=== PATIENT | female | born 1955 | race Caucasian/White ===

== ENCOUNTER → 2016-12-30 | Outpatient (CLI) | payer OTHER | LOC: FIMAGING 12:17 | PROVIDERS: ATTEND Obstetrics & Gynecology | DX: Z12.31 Encounter for screening mammogram for malignant neoplasm of breast (principal) | CPT/HCPCS: G0202 ==

== ENCOUNTER 2017-07-28 06:15 | Inpatient (IN) | payer OTHER ==
[~2017-07-28 06:15] MED LIST: ROPIVACAINE 0.2% 80 MG, EPINEPHrine 0.2 MG, KETOROLAC TROMETHAMINE 30 MG in SYRINGE 0 ML IU ONE; TRANEXAMIC ACID 3,000 MG in NS 50 ML IRR ONE
[2017-07-28] MEDS ORDERED: TRANEXAMIC ACID 3,000 MG/50 ML BAG IRR ONE (06:31)
[2017-07-28] MEDS ORDERED: ceFAZolin 2 GM/SWFI 2 GM/20 ML SYR IVP ONE (06:39)
[2017-07-28] MEDS ORDERED: DEXAMETHASONE 4 MG/ML VIAL IVP ONE (06:39)
[2017-07-28] MEDS ORDERED: ACETAMINOPHEN 325 MG TAB PO ONE (06:39)
[2017-07-28] MEDS ORDERED: FAMOTIDINE 20 MG TAB PO ONE (06:39)
[2017-07-28] MEDS ORDERED: LIDOCAINE 1% 2 ML INJ ID PRN (06:41)
[2017-07-28] MEDS ORDERED: LR 1,000 ML IV ONE (06:41)
--- NOTE | 2017-07-28 07:13 | PDHPUP ---
History & Physical Update H&P update statement: This history and physical update is based on an assessment of the patient which was completed after admission or registration (within 24 hours), but prior to the surgery/procedure. H&P update: H&P reviewed & patient examined, no change in patient's condition since H&P completed
[2017-07-28] MEDS ORDERED: MIDAZOLAM 2 MG/2 ML VIAL IVP ONE (07:38)
--- NOTE | 2017-07-28 07:38 | PDANEPAE ---
ANE History of Present Illness 61 yo for teto ANE Past Medical History - Cardiovascular History Hx Hypertension: No Hx Arrhythmias: Yes Hx Coronary Artery / Peripheral Vascular Disease: No Hx CHF / Valvular Disease: No Hx Palpitations: No Cardiovascular History Comment: Mild mitral regurg-stable. LBBB X 8 YEARS WORKED UP NORMAL RESULTS & ASYMPTOMATIC. HEART CATH DECEMBER 2006 - Pulmonary History Hx COPD: No Hx Asthma/Reactive Airway Disease: No Hx Recent Upper Respiratory Infection: No Hx Oxygen in Use at Home: No Hx Sleep Apnea: No Sleep Apnea Screening Result - Last Documented: Negative Pulmonary History Comment: NEG - Neurologic History Hx Cerebrovascular Accident: No Hx Seizures: No Hx Dementia: No - Endocrine History Hx Diabetes: No Endocrine History Comment: Hgb A1C =6.0-down from 6.1 October - Renal History Hx Renal Disorders: No - Liver History Hx Hepatic Disorders: No - Neurological & Psychiatric Hx Hx Neurological and Psychiatric Disorders: Yes Neurological / Psychiatric History Comment: DDD, spinal stenosis Tx w/remote hx of CATHY. Cymbalta for low back pain. Denies depression/anxiety. - Cancer History Hx Cancer: No - Congenital Disorder History Hx Congenital Disorders: No - GI History Hx Gastrointestinal Disorders: No - Other Health History Other Health History: NONE - Chronic Pain History Chronic Pain: Yes (R hip) - Surgical History Prior Surgeries: L total hip 9-15. LAPAROSCOPIES X2. ARTHROSCOPIC KNEES JOE. R THHMB. L CARPAL TUNNEL ANE Review of Systems Review of Systems: - Exercise capacity METS (RN): 4 METS ANE Patient History - Allergies Allergies/Adverse Reactions: bacitracin Allergy (Verified 07/13/17 11:09) Swelling/neck,face,throat Penicillins Allergy (Verified 07/13/17 11:09) Hives - Home Medications Home medications: home medication list seen and reviewed Home Medications: Herbals/Supplements -Info Only 1 ea PO DAILY 04/04/15 [Last Taken 04/01/15] [place]-3 Fatty Acids [Fish Oil 1000 mg (*)] 1,000 mg PO DAILY 04/04/15 [Last Taken 04/01/15] Acetaminophen [Tylenol 325mg (*)] 325 mg PO Q8H PRN 07/08/17 [Last Taken Unknown ] Ascorbic Acid [Vitamin C 500 mg (*)] 500 mg PO DAILY 07/08/17 [Last Taken Unknown] Cholecalciferol Vit D3 [Vitamin D3 (*)] 1,000 units PO DAILY 07/08/17 [Last Taken Unknown] DULoxetine [Cymbalta 30 MG (*)] 30 mg PO DAILY 07/08/17 [Last Taken Unknown] Ibuprofen [Motrin (*)] 600 mg PO Q8HRS PRN 07/08/17 [Last Taken Unknown] - NPO status NPO Status: no food or drink >8 hours NPO Since - Liquids (Date): 07/28/17 NPO Since - Liquids (Time): 05:00 NPO Since - Solids (Date): 07/27/17 NPO Since - Solids (Time): 21:00 - Smoking Hx Smoking Status: Never smoked - Family Anes Hx Family Hx Anesthesia Complications: NEG ANE Labs/Vital Signs - Vital Signs Blood Pressure: 132/65 Heart Rate: 76 Respiratory Rate: 16 O2 Sat (%): 92 Height: 5 ft 5.5 in Weight: 68.946 kg ANE Physical Exam - Airway Neck exam: FROM Mallampati Score: Class 2 Mouth exam: normal dental/mouth exam - Pulmonary Pulmonary: no respiratory distress - Cardiovascular Cardiovascular: regular rate and rhythym - ASA Status ASA Status: II ANE Anesthesia Plan Anesthesia Plan: spinal
[2017-07-28] MEDS ORDERED: PROPOFOL/EMULSION 500 MG/50 ML BOTTLE IV ONE (08:08)
[2017-07-28] MEDS ORDERED: ONDANSETRON 4 MG/2 ML VIAL IVP PRN ×2 (09:10→09:32)
[2017-07-28] MEDS ORDERED: fentaNYL 100 MCG/2 ML INJ IVP PRN (09:10)
[2017-07-28] MEDS ORDERED: HYDROmorphONE/DILAUDID 1 MG/ML INJ IVP PRN (09:10)
[2017-07-28] MEDS ORDERED: NALOXONE HCL 0.4 MG/ML INJ IVP PRN (09:10)
[2017-07-28] MEDS ORDERED: POLYETHYLENE GLYCOL 3350 17 GM PKT PO PRN (09:32)
[2017-07-28] MEDS ORDERED: BISACODYL 10 MG SUPP PR PRN (09:32)
[2017-07-28] MEDS ORDERED: LACTULOSE 20 GM/30 ML UDCUP PO PRN (09:32)
[2017-07-28] MEDS ORDERED: ONDANSETRON DISINTEGRATING 4 MG TAB PO PRN (09:32)
[2017-07-28] MEDS ORDERED: DIPHENOXYLATE/ATROPINE LOMOTIL 1 TAB PO PRN (09:32)
[2017-07-28] MEDS ORDERED: PROMETHAZINE HCL 25 MG SUPPR PR PRN (09:32)
[2017-07-28] MEDS ORDERED: PROMETHAZINE HCL 25 MG/ML INJ IVP PRN (09:32)
[2017-07-28] MEDS ORDERED: MAGNESIUM HYDROXIDE 30 ML UDCUP PO PRN (09:32)
[2017-07-28] MEDS ORDERED: METOCLOPRAMIDE 10 MG/2 ML VIAL IVP PRN (09:32)
[2017-07-28] MEDS ORDERED: TEMAZEPAM 15 MG CAP PO PRN (09:32)
[2017-07-28] MEDS ORDERED: CYCLOBENZAPRINE 10 MG TAB PO PRN (09:32)
[2017-07-28] MEDS ORDERED: diphenhydrAMINE 25 MG CAP PO PRN (09:32)
--- NOTE | 2017-07-28 09:32 | POSTOPPROG ---
Post Op Note Date of Operation: 07/28/17 Surgeon: Priscilla Gardner Line Haul Driver: rc gardner Anesthesiologist: dr. alexandre Anesthesia: Spinal Pre-op Diagnosis: right hip OA Post-op Diagnosis: same Indication: right hip pain due to OA that failed conservative measures Procedure: R MISSY ant approach Findings: severe hip OA Inf/Abcess present in the surg proc area at time of surgery?: No EBL: 100-500
--- NOTE | 2017-07-28 09:52 | POSTANESTH ---
Post Anesthetic Evaluation Cardiovascular Status: Normal, Stable Respiratory Status: Normal, Stable Level of Consciousness/Mental Status: Can Participate in Eval Pain Control: Adequate, Prn Tx Ordered Nausea/Vomiting Control: Adequate, Prn Tx Ordered Complications Possibly Related to Anesthesia: None Noted
[2017-07-28] MEDS ORDERED: LR 1,000 ML IV SCH (10:00)
[2017-07-28] MEDS ORDERED: ACETAMINOPHEN 325 MG TAB ONE (12:06)
[2017-07-28] MEDS: ACETAMINOPHEN 325 MG TAB PO SCH ×4 (12:16→23:28)
[2017-07-28] MEDS: ceFAZolin 2 GM/DEXTROSE 100 ML IV SCH ×2 (15:31→23:28)
[2017-07-28] MEDS: oxyCODONE IR 5 MG TAB PO PRN ×3 (15:32→23:30)
[2017-07-28] MEDS: SENNOSIDES/DOCUSATE SODIUM TAB PO SCH (20:46)
[2017-07-28] MEDS: ASPIRIN 81 MG CHEWABLE TAB PO SCH (20:47)
[2017-07-28] MEDS: FAMOTIDINE 20 MG TAB PO SCH (20:47)
[2017-07-29 03:39] VITALS: RESP 16
[2017-07-29] MEDS: ACETAMINOPHEN 325 MG TAB PO SCH ×2 (05:12→11:27)
[2017-07-29 08:01] VITALS: BP 102/66; PULSE 67; TEMP 98.8; O2SAT 94
[2017-07-29] MEDS: oxyCODONE IR 5 MG TAB PO PRN (08:13)
[2017-07-29] MEDS: ASPIRIN 81 MG CHEWABLE TAB PO SCH (08:14)
[2017-07-29] MEDS: SENNOSIDES/DOCUSATE SODIUM TAB PO SCH (08:15)
[2017-07-29] MEDS: FAMOTIDINE 20 MG TAB PO SCH (08:15)
--- NOTE | 2017-07-29 08:32 | GOP ---
[f rep st] OPERATIVE REPORT DATE OF OPERATION: 07/28/2017 SURGEON: Jet Simpson MD PORTFOLIO ADMINISTRATOR: JANE Turner ANESTHESIA: Spinal. PREOPERATIVE DIAGNOSIS: Right hip osteoarthritis. POSTOPERATIVE DIAGNOSIS: Right hip osteoarthritis. PROCEDURE PERFORMED: Right total hip arthroplasty with x-ray. FINDINGS: ESTIMATED BLOOD LOSS: 200 cc. INDICATIONS: The patient has progressively worsening arthritis of the hip which has failed medical management. The patient understands the treatment options including continued non-operative care and has selected surgical intervention. The patient has decided to undergo total hip arthroplasty via the direct anterior approach, understanding the risks of the procedure including , but not limited to, neurovascular injury, infection, persistent pain, component wear and loosening, deep venous thrombosis, pulmonary embolism, limb length inequality, hip instability (including dislocation), and intra-operative fractures. DESCRIPTION OF PROCEDURE: After proper identification of the patient including verification and marking the surgical site, the patient was brought to the operating room and placed in the supine position. All bony prominences were well padded. Anesthesia was induced without complication and intravenous prophylactic antibiotics were administered prior to skin incision. The operative leg was placed in the Trumpf Arch table extension and the well leg in a Yellofin leg hernandez. The patient was prepped and draped in the usual sterile fashion. The C-arm was draped for intra-operative fluoroscopy to check acetabular position, femoral component position including leg length and femoral offset. Attention was then drawn to surgical exposure of the hip. An incision was made with a #10 Bard Cordell blade starting 3 cm lateral and 3 cm distal to the anterior superior iliac spine measuring 8-10 cm and coursing distally toward the greater trochanter. The skin and subcutaneous tissues were divided sharply down to the fascia tammie. The fascia tammie was incised in line with the skin incision exposing the underlying tensor fascia tammie muscle. The muscle was bluntly elevated from the fascia and the first extracapsular Cobra retractor was placed laterally at the junction of the superior femoral neck and greater trochanter. The lateral femoral circumflex vessels were identified, cauterized , and divided with the Aquamantys bipolar cautery. The deep investing fascia of the TFL was divided to allow proper mobilization of the muscle preventing damage during the retraction. The reflected head of the rectus femoris muscle was elevated off the anterior hip capsule and a medial Cobra retractor was placed just proximal to the lesser trochanter. The anterior capsulotomy was made sharply from the superolateral acetabulum to the saddle junction of the superior femoral neck and greater trochanter, then coursing inferomedial towards the lesser trochanter. The retractors were then placed in the intracapsular position for femoral neck osteotomy. Corresponding to pre-operative templating, the osteotomy was made with the oscillating saw carefully protecting the greater trochanter and soft tissues. The femoral head was removed from the acetabulum with a corkscrew and confirmed to be severely arthritic with exposed bone, deformity and osteophytes. Similar findings were confirmed in the acetabulum. The Arch table extension was then placed in 40 degrees external rotation. Attention was then drawn to the acetabular preparation. After placement of the anterior and posterior Cobra retractors outside the labrum and intracapsular, the circumferential labrum was removed sharply. The foveal contents were then removed and hemostasis obtained with cautery. The first reamer selected was sized using the removed femoral head. Reaming began with medialization and then commenced in 2 mm increments at 45 degrees of abduction and 15 degrees of anteversion using fluoroscopic navigation. Reaming ceased 1 mm less than the definitive acetabular component and corresponded to the pre-operative templating. The final acetabular component was inserted using fluoroscopy to achieve proper orientation yielding excellent purchase and stability in the acetabulum. The final acetabular liner was then placed and its seating confirmed. Attention was then turned to the femur. The Arch table extension was placed in extension and adduction, delivering the osteotomized femoral neck into the wound. A 2-pronged femoral elevator was placed at the calcar and another at the tip of the greater trochanter. The posterolateral capsule was released with cautery allowing mobilization of the femur lateral and anterior for preparation. The external rotators were visualized and preserved. A curette and rongeur were used to open the starting point for broaching. Serial broaching started with the #0 broach and ended with the broach that exhibited excellent fit in the proximal femur. A change in pitch during mallet strikes was accompanied by the inability to advance the broach any further. The trial reduction was performed and fluoroscopic navigation was utilized to check limb length. Adjustments were made to equalize limb length accordingly. After the final trials were accepted they were removed and the wound was copiously lavaged. The femoral component was seated to the same depth as the final broach and the femoral head was impacted onto the clean trunnion. The hip was then reduced for the final time and once more fluoroscopy was used to check that limb length equality was achieved. The wound was irrigated and closed in layers, the fascia tammie with 2-0 Quill, the subcutaneous tissue with 2-0 Quill, and the skin with Dermabond. Sterile dressings were applied. Final sharps and sponge counts were accurate. The patient was then transferred to a hospital bed and brought to the recovery room in stable condition. IMPLANTS: Accolade II, size 4 at 127. Acetabular component a 50 mm Tritanium. The liner is a Trident X3, 32 mm. The head is a Biolox delta, 32 mm, -4. /[id number]/MODL MTDD
--- NOTE | 2017-07-29 08:46 | SOAPPROG ---
SOAP Progress Note Assessment/Plan: Assessment: Patient is doing well POD 1 s/p R MISSY Pain management: pain is well controlled on oral pain meds. VTE ppx: recommend aspirin 81mg BID for 4 weeks, cont JENNI and SCDs Anemia: level is expected initially postop. Asymptomatic. Continue to monitor D/c planning: d/c to home today pending release from PT Plan: 07/29/17 08:46 Subjective: Halina is doing well, denies SOB, chest pain and n/v Objective: Vital Signs Temp Pulse Resp BP Pulse Ox 37.1 C 67 16 102/66 94 07/29/17 07:58 07/29/17 07:58 07/29/17 07:58 07/29/17 07:58 07/29/17 07:58 Laboratory Results 07/29/17 05:42 07/28/17 07/29/17 07/30/17 05:59 05:59 05:59 Intake Total 3371 Output Total 2250 Balance 1121 RLE: incision dressing is clean and dry, NVI, +pf/df ICD10 Worksheet Patient Problems: Problems Problem Status Onset Primary localized osteoarthritis of right hip Acute Osteoarthritis of knee Acute
[2017-07-29] MEDS ORDERED: DULoxetine 30 MG CAP PO SCH (09:00)
--- NOTE | 2017-07-29 10:13 | GDS ---
[f rep st] DISCHARGE SUMMARY ADMISSION DIAGNOSIS: Right hip osteoarthritis. DISCHARGE DIAGNOSIS: Right hip osteoarthritis. PROCEDURE: Right total hip arthroplasty. VTE PROPHYLAXIS: Aspirin 81 mg twice daily for four weeks. BRIEF DESCRIPTION OF HOSPITAL STAY: Patient was admitted for an elective joint arthroplasty. The pa marty tolerated the procedure well and has passed physical therapy. The patient was given appropriat e antibiotic prophylaxis and venous thromboembolism prophylaxis. The patient's pain was well control led on oral pain medication, patient was holding down food, and had urinated. Decision was made to d ischarge the patient. The patient was given post-operative prescriptions pre-operatively. PLAN: Please follow up as scheduled 08/19 at 2:45 p.m. /[id number]/MODL
--- NOTE | 2017-07-29 14:25 | ASDISCHSUM ---
Discharge Information Plan Status:Home with No Needs Medically Cleared to Leave: Discharge Date:07/29/2017 12:41 PM CM D/C Disposition:Home, Routine, Self-Care ADT D/C Disposition:Home, Routine, Self-Care Projected Discharge Date:07/29/2017 12:41 PM Transportation at D/C: Discharge Delay Reason: Follow-Up Date:07/29/2017 12:41 PM Discharge Slot: Final Diagnosis: Placement Information Patient Contact Information Contact Name:NEELAM Relationship: Address:[address] Work Phone: [facility]:[place] Alternate Phone: [facility]/Zip Code:[place] [address] Email: Financial Information Financial Class:HMO and PPO Plans Primary Plan Desc:LUZ PPO [employer] Primary Plan Number:[id number] Secondary Plan Desc: Secondary Plan Number: Assessment Information CM Chart Snatcher Assessment CJR Did you go to joint Answers: Yes class? CM Note CM Note Notes: Halina is planning to discharge home after one day with the support of her family. She has set up physical therapy in an outpatient setting, but is looking to cancel that per Dr. Chun recommendation. Halina has stairs leading into her home and to her bedroom, but I informed her that physical therapy in the hospital will be able to teach her how to be mobile on stairs. Halina is currently using a cane to get around, but has a walker for post-surgery. Date Signed: 07/22/2017 03:24 PM Electronically Signed By:Danelle Steward Intervention Information
== END 2017-07-29 12:41 | disposition home or self-care (01) | DRG 470 ==
LOC: F3N 06:15
PROVIDERS: ADMIT Orthopaedic Surgery; ATTEND Orthopaedic Surgery
PROC: 0SR904A Replacement of Right Hip Joint with Ceramic on Polyethylene Synthetic Substitute, Uncemented, Open Approach (ICD-10-PCS; principal; 2017-07-28 08:15)
DX: M17.11 Unilateral primary osteoarthritis, right knee (principal); I44.7 Left bundle-branch block, unspecified; Z96.642 Presence of left artificial hip joint
CPT/HCPCS: 97116-GP; 97161-GP; 97165-GO; 97530-GP; 97535-GO; J0171; J0690; J1100; J1885; J2250; J2704; J2795

== ENCOUNTER → 2018-01-04 | Outpatient (CLI) | payer OTHER | LOC: CIMAGING 14:22 | PROVIDERS: ATTEND Internal Medicine | DX: Z12.31 Encounter for screening mammogram for malignant neoplasm of breast (principal) ==

== ENCOUNTER 2018-01-14 08:22 | Inpatient (IN) | payer OTHER ==
[~2018-01-14 08:22] MED LIST changes: +TRANEXAMIC ACID 3,000 MG in NS (SYRINGE) 50 ML IRR ONE; -TRANEXAMIC ACID 3,000 MG in NS 50 ML IRR ONE; +TRANEXAMIC ACID 3,000 MG/50 ML BAG IRR ONE
[2018-01-14] MEDS ORDERED: DEXAMETHASONE 4 MG/ML VIAL IVP ONE (08:48)
[2018-01-14] MEDS ORDERED: FAMOTIDINE 20 MG TAB PO ONE (08:48)
[2018-01-14] MEDS ORDERED: ceFAZolin 2 GM/DEXTROSE 100 ML IV ONE (08:48)
[2018-01-14] MEDS ORDERED: ACETAMINOPHEN 325 MG TAB PO ONE (08:48)
[2018-01-14] MEDS ORDERED: LR 1,000 ML IV ONE (08:49)
[2018-01-14] MEDS ORDERED: MIDAZOLAM 2 MG/2 ML VIAL IVP ONE (09:05)
--- NOTE | 2018-01-14 09:05 | PDANEPAE ---
ANE History of Present Illness her for MISSY ANE Past Medical History - Cardiovascular History Hx Hypertension: No Hx Arrhythmias: No Hx Chest Pain: No Hx Coronary Artery / Peripheral Vascular Disease: No Hx CHF / Valvular Disease: No Hx Palpitations: No Cardiovascular History Comment: Mild mitral regurg-stable. LBBB X 8 YEARS WORKED UP NORMAL RESULTS & ASYMPTOMATIC. HEART CATH DECEMBER 2006 - Pulmonary History Hx COPD: No Hx Asthma/Reactive Airway Disease: No Hx Recent Upper Respiratory Infection: No Hx Oxygen in Use at Home: No Hx Sleep Apnea: No Sleep Apnea Screening Result - Last Documented: Negative Pulmonary History Comment: NEG - Neurologic History Hx Cerebrovascular Accident: No Hx Seizures: No Hx Dementia: No - Endocrine History Hx Diabetes: No Endocrine History Comment: PRE DIABETIC BORDERLINE ELEVATION IN HGA1C - Renal History Hx Renal Disorders: No - Liver History Hx Hepatic Disorders: No - Neurological & Psychiatric Hx Hx Neurological and Psychiatric Disorders: Yes Neurological / Psychiatric History Comment: DDD, spinal stenosis Tx w/remote hx of CATHY. Cymbalta for low back pain. Denies depression/anxiety. - Cancer History Hx Cancer: No - Congenital Disorder History Hx Congenital Disorders: No - GI History Hx Gastrointestinal Disorders: No - Other Health History Other Health History: NONE - Chronic Pain History Chronic Pain: Yes (LT HIP) - Surgical History Prior Surgeries: RT TOTAL HIP 07/28/16. LAPAROSCOPIES X2. JOE KNEE SCOPES. RT THUMB. LT CARPAL TUNNEL ANE Review of Systems Review of systems is: negative Review of Systems: - Exercise capacity Exercise capacity: >=4 METS METS (RN): 4 METS ANE Patient History - Allergies Allergies/Adverse Reactions: bacitracin Allergy (Verified 01/03/18 11:35) Other-Enter Comments nickel Allergy (Verified 01/06/18 11:30) SWELLING Penicillins Allergy (Verified 07/13/17 11:09) Hives - Home Medications Home medications: home medication list seen and reviewed Home Medications: Herbals/Supplements -Info Only 1 ea PO DAILY 04/04/15 [Last Taken 2 Weeks Ago ~ 12/31/17] [place]-3 Fatty Acids [Fish Oil 1000 mg (*)] 1,000 mg PO BID 04/04/15 [Last Taken 1 Week Ago ~01/07/18] Ascorbic Acid [Vitamin C 500 mg (*)] 500 mg PO HS 07/08/17 [Last Taken 2 Weeks Ago ~12/31/17] Cholecalciferol Vit D3 [Vitamin D3 (*)] 1,000 units PO HS 07/08/17 [Last Taken Unknown] DULoxetine [Cymbalta 30 MG (*)] 30 mg PO DAILY 07/08/17 [Last Taken 01/14/18 07: 00] Psyllium Husk [Metamucil] 660 gm PO DAILY 01/03/18 [Last Taken 2 Days Ago ~01/12] - NPO status NPO Status: no food or drink >8 hours NPO Since - Liquids (Date): 01/14/18 NPO Since - Liquids (Time): 07:00 NPO Since - Solids (Date): 01/13/18 NPO Since - Solids (Time): 21:00 - Smoking Hx Smoking Status: Never smoked - Family Anes Hx Family Hx Anesthesia Complications: NEG ANE Labs/Vital Signs - Vital Signs Vital Signs: reviewed preoperatively; see RN documention for details Blood Pressure: 111/63 Heart Rate: 61 Respiratory Rate: 14 O2 Sat (%): 94 Height: 165.1 cm Weight: 68.946 kg ANE Physical Exam - Airway Neck exam: FROM Mallampati Score: Class 1 - Pulmonary Pulmonary: no respiratory distress - Cardiovascular Cardiovascular: regular rate and rhythym - ASA Status ASA Status: II ANE Anesthesia Plan Anesthesia Plan: spinal
[2018-01-14] MEDS ORDERED: LIDOCAINE 1% 2 ML INJ ONE (09:37)
[2018-01-14] MEDS ORDERED: LIDOCAINE 1% 2 ML INJ ID ONE (09:37)
[2018-01-14] MEDS ORDERED: fentaNYL 100 MCG/2 ML INJ IVP PRN (09:43)
[2018-01-14] MEDS ORDERED: ONDANSETRON 4 MG/2 ML VIAL IVP PRN ×2 (09:43→11:39)
[2018-01-14] MEDS ORDERED: NS 500 ML IV PRN (09:43)
[2018-01-14] MEDS ORDERED: ALBUTEROL 3 ML DEYVIAL IH PRN (09:43)
[2018-01-14] MEDS ORDERED: NALOXONE HCL 0.4 MG/ML INJ IVP PRN (09:43)
[2018-01-14] MEDS ORDERED: HYDROmorphONE/DILAUDID 1 MG/ML INJ IVP PRN (09:43)
[2018-01-14] MEDS ORDERED: LR 500 ML IV PRN (09:43)
[2018-01-14] MEDS ORDERED: PROPOFOL/EMULSION 500 MG/50 ML BOTTLE IV ONE (09:47)
[2018-01-14] MEDS ORDERED: PROPOFOL 200 MG/20 ML VIAL ONE (11:18)
[2018-01-14] MEDS ORDERED: TEMAZEPAM 15 MG CAP PO PRN (11:39)
[2018-01-14] MEDS ORDERED: DIPHENOXYLATE/ATROPINE LOMOTIL 1 TAB PO PRN (11:39)
[2018-01-14] MEDS ORDERED: PROMETHAZINE HCL 25 MG SUPPR PR PRN (11:39)
[2018-01-14] MEDS ORDERED: BISACODYL 10 MG SUPP PR PRN (11:39)
[2018-01-14] MEDS ORDERED: MAGNESIUM HYDROXIDE 30 ML UDCUP PO PRN (11:39)
[2018-01-14] MEDS ORDERED: METOCLOPRAMIDE 10 MG/2 ML VIAL IVP PRN (11:39)
[2018-01-14] MEDS ORDERED: PROMETHAZINE HCL 25 MG/ML INJ IVP PRN (11:39)
[2018-01-14] MEDS ORDERED: diphenhydrAMINE 25 MG CAP PO PRN (11:39)
[2018-01-14] MEDS ORDERED: POLYETHYLENE GLYCOL 3350 17 GM PKT PO PRN (11:39)
[2018-01-14] MEDS ORDERED: LACTULOSE 20 GM/30 ML UDCUP PO PRN (11:39)
[2018-01-14] MEDS ORDERED: ONDANSETRON DISINTEGRATING 4 MG TAB PO PRN (11:39)
--- NOTE | 2018-01-14 11:41 | POSTOPPROG ---
Post Op Note Date of Operation: 01/14/18 Surgeon: Priscilla Gardner Field Coil Winder: rc gardner Anesthesiologist: dr. wolff Anesthesia: Spinal Pre-op Diagnosis: left hip OA Post-op Diagnosis: same Indication: left hip pain due to OA that failed conservative measures Procedure: L MISSY ant approach Findings: severe hip OA Inf/Abcess present in the surg proc area at time of surgery?: No EBL: 100-500
[2018-01-14] MEDS: ACETAMINOPHEN 325 MG TAB PO SCH ×2 (13:18→17:45)
[2018-01-14] MEDS: LR 1,000 ML IV SCH (13:32)
--- NOTE | 2018-01-14 15:48 | PDMN ---
Medical Necessity Medical necessity: Pt meets INPT criteria per and [facility] S-560 Hip Arthroplasty ( INPT only surgery).
[2018-01-14] MEDS: oxyCODONE IR 5 MG TAB PO PRN ×2 (16:27→19:54)
[2018-01-14] MEDS: ceFAZolin 2 GM/DEXTROSE 100 ML IV SCH (17:45)
--- NOTE | 2018-01-14 17:53 | GOP ---
[f rep st] OPERATIVE REPORT DATE OF OPERATION: 01/14/2018 SURGEON: Jet Simpson MD AIRCRAFT STRUCTURAL REPAIR MECHANIC: VEA Turner ANESTHESIA: Spinal. PREOPERATIVE DIAGNOSIS: Left hip osteoarthritis. POSTOPERATIVE DIAGNOSIS: Left hip osteoarthritis. PROCEDURE PERFORMED: Left total hip arthroplasty with x-ray. FINDINGS: ESTIMATED BLOOD LOSS: 200 cc. INDICATIONS: The patient has progressively worsening arthritis of the hip which has failed medical m anagement. The patient understands the treatment options including continued non-operative care and has selected surgical intervention. The patient has decided to undergo total hip arthroplasty via th e direct anterior approach, understanding the risks of the procedure including, but not limited to, n eurovascular injury, infection, persistent pain, component wear and loosening, deep venous thrombosis , pulmonary embolism, limb length inequality, hip instability (including dislocation), and intra-oper ative fractures. DESCRIPTION OF PROCEDURE: After proper identification of the patient including verification and mirian ing the surgical site, the patient was brought to the operating room and placed in the supine positio n. All bony prominences were well padded. Anesthesia was induced without complication and intraveno us prophylactic antibiotics were administered prior to skin incision. The operative leg was placed in the Trumpf Arch table extension and the well leg in a Yellofin leg ho lder. The patient was prepped and draped in the usual sterile fashion. The C-arm was draped for int ra-operative fluoroscopy to check acetabular position, femoral component position including leg lengt h and femoral offset. Attention was then drawn to surgical exposure of the hip. An incision was made with a #10 Bard Richi r blade starting 3 cm lateral and 3 cm distal to the anterior superior iliac spine measuring 8-10 cm and coursing distally toward the greater trochanter. The skin and subcutaneous tissues were divided sharply down to the fascia tammie. The fascia tammie was incised in line with the skin incision exposing the underlying tensor fascia tammie muscle. The muscle was bluntly elevated from the fascia and the f irst extracapsular Cobra retractor was placed laterally at the junction of the superior femoral neck and greater trochanter. The lateral femoral circumflex vessels were identified, cauterized, and divi ded with the Aquamantys bipolar cautery. The deep investing fascia of the TFL was divided to allow p elisa mobilization of the muscle preventing damage during the retraction. The reflected head of the rectus femoris muscle was elevated off the anterior hip capsule and a medial Cobra retractor was plac ed just proximal to the lesser trochanter. The anterior capsulotomy was made sharply from the superolateral acetabulum to the saddle junction of the superior femoral neck and greater trochanter, then coursing inferomedial towards the lesser troc hanter. The retractors were then placed in the intracapsular position for femoral neck osteotomy. C orresponding to pre-operative templating, the osteotomy was made with the oscillating saw carefully p rotecting the greater trochanter and soft tissues. The femoral head was removed from the acetabulum with a corkscrew and confirmed to be severely arthritic with exposed bone, deformity and osteophytes. Similar findings were confirmed in the acetabulum. The Arch table extension was then placed in 40 degrees external rotation. Attention was then drawn to the acetabular preparation. After placement of the anterior and posterio r Cobra retractors outside the labrum and intracapsular, the circumferential labrum was removed sharp ly. The foveal contents were then removed and hemostasis obtained with cautery. The first reamer selected was sized using the removed femoral head. Reaming began with medialization and then commenced in 2 mm increments at 45 degrees of abduction and 15 degrees of anteversion using fluoroscopic navigation. Reaming ceased 1 mm less than the definitive acetabular component and diaz esponded to the pre-operative templating. The final acetabular component was inserted using fluorosc opy to achieve proper orientation yielding excellent purchase and stability in the acetabulum. The f inal acetabular liner was then placed and its seating confirmed. Attention was then turned to the femur. The Arch table extension was placed in extension and adducti on, delivering the osteotomized femoral neck into the wound. A 2-pronged femoral elevator was placed at the calcar and another at the tip of the greater trochanter. The posterolateral capsule was rele ased with cautery allowing mobilization of the femur lateral and anterior for preparation. The exter nal rotators were visualized and preserved. A curette and rongeur were used to open the starting poi nt for broaching. Serial broaching started with the #0 broach and ended with the broach that exhibit ed excellent fit in the proximal femur. A change in pitch during mallet strikes was accompanied by t he inability to advance the broach any further. The trial reduction was performed and fluoroscopic n avigation was utilized to check limb length. Adjustments were made to equalize limb length according ly. After the final trials were accepted they were removed and the wound was copiously lavaged. The femo ral component was seated to the same depth as the final broach and the femoral head was impacted onto the clean trunnion. The hip was then reduced for the final time and once more fluoroscopy was used to check that limb length equality was achieved. The wound was irrigated and closed in layers, the fascia tammie with 2-0 Quill, the subcutaneous tissue with 2-0 Quill, and the skin with Dermabond. Sterile dressings were applied. Final sharps and spon ge counts were accurate. The patient was then transferred to a hospital bed and brought to the [facility] room in stable condition. IMPLANTS: Accolade II size 4 at 127. Acetabular component is 50 mm Trident II. Liner is a Trident X3, 32 mm. Head is a Biolox Delta 36 mm, -4. /[id number]/MODL
[2018-01-14] MEDS: SENNOSIDES/DOCUSATE SODIUM TAB PO SCH (19:54)
[2018-01-14] MEDS: FAMOTIDINE 20 MG TAB PO SCH (19:54)
[2018-01-14] MEDS: ASPIRIN 81 MG CHEWABLE TAB PO SCH (19:54)
[2018-01-14] MEDS: CYCLOBENZAPRINE 10 MG TAB PO PRN (21:56)
[2018-01-15] MEDS: ACETAMINOPHEN 325 MG TAB PO SCH ×2 (00:02→05:14)
[2018-01-15] MEDS: ceFAZolin 2 GM/DEXTROSE 100 ML IV SCH (01:48)
[2018-01-15] MEDS: oxyCODONE IR 5 MG TAB PO PRN ×2 (01:51→08:55)
[2018-01-15] MEDS: LR 1,000 ML IV SCH (04:10)
[2018-01-15 08:12] VITALS: BP 96/51
[2018-01-15] MEDS: FAMOTIDINE 20 MG TAB PO SCH (08:55)
[2018-01-15] MEDS: ASPIRIN 81 MG CHEWABLE TAB PO SCH (08:55)
[2018-01-15] MEDS: SENNOSIDES/DOCUSATE SODIUM TAB PO SCH (08:56)
[2018-01-15] MEDS ORDERED: DULoxetine 30 MG CAP PO SCH (09:00)
[2018-01-15] MEDS: CYCLOBENZAPRINE 10 MG TAB PO PRN (10:08)
--- NOTE | 2018-01-15 11:11 | SOAPPROG ---
[facility] Progress Note Assessment/Plan: Assessment: Patient is doing well POD 1 s/p L MISSY pain management: pain is well controlled on oral pain meds VTE ppx: recommend ASA 81 mg BID for 4 weeks anemia: level is stable and expected postoperative D/c planning: d/c to home today pending release from PT Plan: 01/15/18 11:10 Subjective: patient is doing well today, denies SOB, chest pain and n/v Objective: Vital Signs Temp Pulse Resp BP Pulse Ox 37.0 C 70 16 96/51 L 93 01/15/18 08:00 01/15/18 08:00 01/15/18 08:00 01/15/18 08:00 01/15/18 08:00 Laboratory Results 01/15/18 04:40 01/14/18 01/15/18 01/16/18 05:59 05:59 05:59 Intake Total 1870 200 Output Total 2600 400 Balance -730 -200 LLE: incision dressing is clean and dry, NVI, +pf/df ICD10 Worksheet Patient Problems: Problems Problem Status Onset Primary localized osteoarthritis of left hip Acute Osteoarthritis of knee Acute Primary localized osteoarthritis of right hip Acute
--- NOTE | 2018-01-27 13:38 | GDS ---
[f rep st] DISCHARGE SUMMARY ADMISSION DIAGNOSIS: Left hip osteoarthritis. DISCHARGE DIAGNOSIS: Left hip osteoarthritis. PROCEDURE: Left total hip arthroplasty. VTE PROPHYLAXIS: Recommend 81 mg aspirin twice a day for 4 weeks. BRIEF DESCRIPTION OF HOSPITAL STAY: Patient was admitted for an elective joint arthroplasty. The pa marty tolerated the procedure well and has passed physical therapy. The patient was given appropriat e antibiotic prophylaxis and venous thromboembolism prophylaxis. The patient's pain was well control led on oral pain medication, patient was holding down food, and had urinated. Decision was made to d ischarge the patient. The patient was given post-operative prescriptions pre-operatively. PLAN: To follow up as scheduled at Dr. Simpson's office February 03 at 1:30. /[id number]/MODL
== END 2018-01-15 12:53 | disposition home or self-care (01) | DRG 470 ==
LOC: F3N 08:22
PROVIDERS: ADMIT Orthopaedic Surgery; ATTEND Orthopaedic Surgery
DX: M16.11 Unilateral primary osteoarthritis, right hip (principal); R73.03 Prediabetes; I44.7 Left bundle-branch block, unspecified; I34.0 Nonrheumatic mitral (valve) insufficiency; M54.5 Low back pain; Z96.642 Presence of left artificial hip joint
CPT/HCPCS: 97110-GP; 97116-GP; 97161-GP; J0171; J0690; J1100; J1885; J2250; J2704; J2795

== ENCOUNTER → 2018-04-21 | Outpatient (CLI) | payer OTHER | LOC: FIMAGING 10:18 | PROVIDERS: ATTEND Anesthesiology Pain Medicine | DX: M41.86 Other forms of scoliosis, lumbar region (principal); M43.17 Spondylolisthesis, lumbosacral region; M51.36 Other intervertebral disc degeneration, lumbar region; M53.87 Other specified dorsopathies, lumbosacral region; M53.3 Sacrococcygeal disorders, not elsewhere classified ==

== ENCOUNTER → 2019-01-05 | Outpatient (CLI) | payer OTHER | LOC: CIMAGING 13:18 ==